=== PATIENT | female | born 1980 | race African-American/Black ===

== ENCOUNTER 2020-07-04 01:49 | Outpatient (CLI) | payer OTHER, SELFPAY ==
[2020-07-04 19:19] LABS: SARS-CoV-2 RNA PCR Negative
== END 2020-07-04 01:50 | disposition home or self-care (01) ==
LOC: ANHCOVIDDT 01:49
PROVIDERS: PCP Physician Assistant; Visit Provider Surgery
DX: Z01.812 Encounter for preprocedural laboratory examination (principal); Z11.59 Encounter for screening for other viral diseases
CPT/HCPCS: 87635; C9803; U0003

== ENCOUNTER 2020-07-06 00:23 | Day surgery (SDC) | payer OTHER, SELFPAY ==
[2020-06-19 15:43] VITALS: BMI 32.5
--- NOTE | 2020-07-05 10:40 | WPDANESEPPF ---
Anes - Initial Pre Proc Eval Procedure: Operation Date: 07/06/20 07:30 Proposed Procedures p Excision Lipoma Left Upper Back, Excision Lipoma Left Anterior Shoulder Region - Justice Schumacher MD Date/Time: 07/05/20 10:40 Surgeon: Justice Schumacher MD Pre Op Diagnosis: Lipomas Left Upper Back/ Left Anterior Shoulder Patient Data Age: 40 Gender: F Height: 1.57 m Weight: 80.74 kg Allergies Allergy/AdvReac Type Severity Reaction Status Date / Time No Known Allergies Allergy Verified 06/19/20 15:44 Home Medications Medication Instructions Recorded Confirmed Type norgestimate-ethinyl estradiol 1 tablet PO HS 06/14/20 06/19/20 History 0.18 mg/0.215mg/0.25mg-35 mcg(28)tablet Patient hx anesthesia problems: none Family hx anesthesia problems: none PMF Family History Family History Mother Diabetes mellitus Cerebrovascular accident Grandparent Diabetes mellitus Social History Social History Smoking status: Never smoker Alcohol intake: never 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 Questions were solicited and answers provided to the satisfaction of the patient/family/POA.
[2020-07-06] MEDS: LACTATED RINGERS 1,000 ML 30 ML IV CONT (07:02)
[2020-07-06 07:04] VITALS: BP 129/66; PULSE 86; RESP 18; TEMP 37.2; O2SAT 100
--- NOTE | 2020-07-06 07:21 | WPDHPUPDATE1 ---
History and Physical Update Update Date/Time: 07/06/20 07:21 History and Physical has been reviewed, including an updated exam of the patient. There are NO changes in the patient's condition. Risks, benefits, and alternatives have been discussed and questions answered. Patient agrees to proceed with procedure.
[2020-07-06] MEDS: ceFAZolin 2 GM/D5W 50 ML 2 GM/50 ML BAG IVPB (07:27)
[2020-07-06] MEDS: BUPIVACAINE/EPINEPHRINE 0.5% 10 ML VIAL 20 ML INFILTRATE (07:56)
--- NOTE | 2020-07-06 08:54 | P.OP_ITS ---
Procedure Note - Detailed Date of procedure: 07/06/20 Pre-op diagnosis: Lipomas Left Upper Back/ Left Anterior Shoulder Procedure performed: Excision of Subcutaneous masses x2 A) 12 x 10 x 3 cm subcutaneous mass left upper back B) 6 x 4.5 x 2.3 cm subcutaneous mass left anterior shoulder region Description of procedure: The patient was placed in the supine position initially and after sedation rolled into the right lateral decubitus position to expose both of the subcutaneous masses. After a surgical time out confirming patient and procedure the patient was prepped and draped in the usual sterile fashion Exposing both the left anterior shoulder and the mid upper left back. Local anesthetic was administered subcutaneously 1st at the left anterior shoulder lesion which measured approximately 6 x 4.5 cm in greatest dimensions. A direct incision was made over the lesion/mass approximately 6 cm in length carefully cutting down to the capsule of the suspected lipoma. Then carefully squeezing this from side to side it started to bubble up out of the wound and Bovie cautery was used to achieve hemostasis along the edges and carefully dissect this out of the subcutaneous tissues. Only has very base was it somewhat adherent to some fascia over some underlying muscle. I excised this bytaking a thin margin circumferentially. I dissected down to the deep subcutaneous tissues and then completely excised the mass. Bleeding was controlled with electrocautery. The wound was closed in two layers. An un-dyed 3-0 vicryl deep dermal and then a 4-0 undyed Monocryl running subcuticular closure was completed. While the operator assistant i cementing was closing the skin on the above site, I then addressed the site on her left upper back. A transverse incision was outlined over this and local anesthetic using 0. 5 % Marcaine with epinephrine was injected both long this incision and then underneath the subq tissues out along the circumference of the palpable mass. A direct incision was made over the lesion/mass approximately 11 cm in length carefully cutting down to the capsule of the suspected lipoma. Then carefully by retracting this from side to side it dissected up out of the wound and Bovie cautery was used to achieve hemostasis along the edges and carefully dissected this out of the subcutaneous tissues. At it's base laterally it was somewhat adherent to some fascia over some underlying muscle. I excised this by taking a thin margin circumferentially. I dissected down to the deep subcutaneous tissues and then completely excised the mass. Bleeding was controlled with electrocautery. There is only 1 moderate- sized artery that bled as I came underneath the lesion. This was controlled by grasping it with a mosquito Hemostatic and then cauterizing the vessel. The wound was closed in two layers. An un-dyed 2-0 vicryl deep subcutaneous and deep dermal and then a few more superficial interrupted 3 0 undyed Vicryl subcutaneous sutures then followed by a 3-0 undyed Monocryl running subcuticular closure was completed. Surgical glue applied as dressing. Patient tolerated this well. Implants: none Anesthesia: local and other (GIVS) Surgeon: Justice Schumacher MD Human Performance Technologist: Katey WELLS. OR merchandising assistant Estimated blood loss (mL): 10 Drains: Yes ( 15 round OLEG Dylan drain to the space under the left upper back incision.) Packing: No Pathology: yes ( two subcutaneous masses) Complications: No immediate complications Condition: stable Disposition: same day Findings: 2 masses which appeared to be lipomas. The one on her back was densely adhered to the underlying fascia.
[2020-07-06 08:57] VITALS: BP 119/74; PULSE 72; RESP 10; TEMP 36.2; O2SAT 99
[2020-07-06 09:25] VITALS: BP 133/83; PULSE 69
[2020-07-06 09:55] VITALS: BP 126/77; PULSE 70
== END 2020-07-06 10:18 | disposition home or self-care (01) ==
PROVIDERS: PCP Physician Assistant; Visit Provider Surgery
PROC: (CPT 21931; principal; 2020-07-06 07:30)
DX: D17.1 Benign lipomatous neoplasm of skin and subcutaneous tissue of trunk (principal); D17.22 Benign lipomatous neoplasm of skin and subcutaneous tissue of left arm; E66.9 Obesity, unspecified; Z68.31 Body mass index [BMI] 31.0-31.9, adult
CPT/HCPCS: 21931; 24071; 88304; J0690; J1100; J2250; J2370; J2405; J2704; J3010; J7120

== ENCOUNTER → 2021-07-19 16:41 | Outpatient (CLI) | payer BC, SELFPAY ==
--- NOTE | ~2021-07-19 | MM_ITS ---
EXAMINATION: MM screening unique BI w peña HISTORY: Screening mammogram; baseline examination TECHNIQUE: Craniocaudal and mediolateral oblique 3-D tomosynthesis images were obtained and synthetic 2-D images were generated. CAD analysis was submitted and interpreted. COMPARISON: No prior mammogram is available for comparison at this institution. BREAST PARENCHYMAL COMPOSITION: There are scattered areas of fibroglandular density. FINDINGS: There is no evidence of suspicious mass, calcification, or architectural distortion to sugg est malignancy in either breast. There has been no suspicious interval change. IMPRESSION: 1. No mammographic evidence of malignancy. 2. Recommend routine screening mammography in one year. BI-RADS Category 1: Negative Reviewed, dictated and finalized at location A.
== END ==
PROVIDERS: PCP Physician Assistant; Visit Provider Physician Assistant
DX: Z12.31 Encounter for screening mammogram for malignant neoplasm of breast (principal)
CPT/HCPCS: 77063; 77067

== ENCOUNTER → 2022-08-30 10:34 | Outpatient (CLI) | payer OTHER, SELFPAY ==
--- NOTE | ~2022-08-30 | XR_ITS ---
XR knee RT 3V 08/30/2022 10:50 Indication: Right knee pain Procedure: 3 views right knee Comparison: No prior studies for comparison. Findings: There is anatomic alignment. Mild patellofemoral compartment degenerative change. No fractu re or traumatic malalignment. No significant joint effusion. No foreign bodies. Impression: 1: Mild patellofemoral compartment osteoarthritis. Reviewed, dictated and finalized at location A. 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
--- NOTE | ~2022-08-30 | XR_ITS ---
XR knee LT 3V 08/30/2022 10:50 Indication: Left knee pain Procedure: 3 views left knee Comparison: No prior studies for comparison. Findings: There is a corticated ossific density at the medial aspect of the distal femur, likely rela omar to remote MCL injury. There is mild patellofemoral compartment osteoarthritis. No significant sean nt effusion. No acute fracture or traumatic malalignment. Impression: 1: Mild patellofemoral compartment osteoarthritis. Reviewed, dictated and finalized at location A. 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
== END ==
PROVIDERS: PCP Physician Assistant; Visit Provider Physician Assistant
DX: M17.0 Bilateral primary osteoarthritis of knee (principal)
CPT/HCPCS: 73562

== ENCOUNTER → 2022-11-08 08:09 | Outpatient (CLI) | payer OTHER, SELFPAY ==
--- NOTE | ~2022-11-08 | MM_ITS ---
EXAMINATION: MM screening unique BI w peña HISTORY: Screening mammogram TECHNIQUE: Craniocaudal and mediolateral oblique 3-D tomosynthesis images were obtained and synthetic 2-D images were generated. CAD analysis was submitted and interpreted. COMPARISON: 07/19/2021 bilateral screening mammogram BREAST PARENCHYMAL COMPOSITION: There are scattered areas of fibroglandular density. FINDINGS: There is no evidence of suspicious mass, calcification, or architectural distortion to sugg est malignancy in either breast. There has been no suspicious interval change. IMPRESSION: 1. No mammographic evidence of malignancy. 2. Recommend routine screening mammography in one year. BI-RADS Category 1: Negative Reviewed, dictated and finalized at location A. 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
== END ==
PROVIDERS: PCP Physician Assistant; Visit Provider Physician Assistant
DX: Z12.31 Encounter for screening mammogram for malignant neoplasm of breast (principal)
CPT/HCPCS: 77063; 77067

== ENCOUNTER 2024-01-16 08:26 | Outpatient (CLI) | payer BC, SELFPAY ==
--- NOTE | ~2024-01-16 | MM_ITS ---
EXAMINATION: MM screening unique BI w peña HISTORY: Screening mammogram TECHNIQUE: Craniocaudal and mediolateral oblique 3-D tomosynthesis images were obtained and synthetic 2-D images were generated. CAD analysis was submitted and interpreted. COMPARISON: November 08, 2022, July 19, 2021 bilateral screening mammogram examinations BREAST PARENCHYMAL COMPOSITION: There are scattered areas of fibroglandular density. FINDINGS: There is no evidence of suspicious mass, calcification, or architectural distortion to sugg est malignancy in either breast. There has been no suspicious interval change. IMPRESSION: 1. No mammographic evidence of malignancy. 2. Recommend routine screening mammography in one year. BI-RADS Category 1: Negative Reviewed, dictated and finalized at location A.
== END 2024-01-16 08:27 | disposition home or self-care (01) ==
LOC: ANHIMG 08:29
PROVIDERS: PCP Physician Assistant; Visit Provider Physician Assistant
DX: Z12.31 Encounter for screening mammogram for malignant neoplasm of breast (principal)
CPT/HCPCS: 77063; 77067

== ENCOUNTER 2024-07-01 16:38 | Emergency (ER) | payer BC, SELFPAY ==
--- NOTE | ~2024-07-01 | CT_ITS ---
EXAMINATION: CT chest abdomen pelvis wo con DATE: 07/01/2024 18:06 INDICATION: Right abdominal pain. TECHNIQUE: Computed tomography (CT) of the chest, abdomen, and pelvis was performed without intraveno us contrast. Automated exposure control and iterative reconstruction technique were employed. The dos e-length product was 739.09 mGy-cm. COMPARISON: None FINDINGS: CHEST CT: The lungs demonstrate mild atelectasis. No pleural effusion. The heart size is normal. No pericardial effusion. ABDOMEN/PELVIS CT: The liver and spleen are normal. The gallbladder is contracted. The pancreas, adrenal glands, and kid neys are normal. There is no urolithiasis. There are no dilated loops of bowel. The appendix is lamar l. There are no pathologically enlarged lymph nodes. There is no free intraperitoneal fluid. The uter us is enlarged. There is mild lumbar spondylosis. IMPRESSION: 1. Enlarged uterus, likely secondary to fibroids. Reviewed, dictated and finalized at location A.
--- NOTE | 2024-07-01 16:59 | ED.ABDPAIN ---
HPI - Abdominal Pain General Chief Complaint: Abdominal Pain <Jumana Muniz APRN - Last Filed: 07/01/24 17:04> Stated Complaint: abd pain <Jumana Muniz APRN - Last Filed: 07/01/24 17:04> Time Seen by Provider: 07/01/24 16:50 <Jumana Muniz APRN - Last Filed: 07/01/24 17:04> Focused HPI: Patient is a 44-year-old female who presents to the ER with abdominal pain. She reports she ate at [employer] last and has had cramping and headache since then. Patient endorses abdominal pain in her right upper quadrant and right lower quadrant. She denies nausea, vomiting, and diarrhea. Patient is worried she has a GI infection since she has been watching the news. She denies chest pain, shortness of breath, or any other medical history. GENERAL: Well-appearing, well-nourished, and in no acute distress. HEAD: Normocephalic, atraumatic. CHEST: Clear to auscultation. ?No respiratory distress. HEART: Regular rate and rhythm.? NEURO: ?Alert and oriented x3. ABDOMEN: BS x 4 quadrants, increased pain with palpation in RUQ and RLQ. Patient screened in triage and initial orders placed.? ?Additional care and disposition to be based upon?diagnostic testing and treatment. <Jumana Muniz APRN - Last Filed: 07/01/24 17:04> Related Data Home Medications: Home Medications Medication Instructions Recorded Confirmed norgestimate-ethinyl estradiol 1 tablet PO HS 06/14/20 11/25/21 0.18 mg/0.215mg/0.25mg-35 mcg(28)tablet ([facility]) <Jumana Muniz APRN - Last Filed: 07/01/24 17:04> Allergies/Adverse Reactions: Allergies Allergy/AdvReac Type Severity Reaction Status Date / Time No Known Allergies Allergy Verified 07/01/24 16:40 <Jumana Muniz APRN - Last Filed: 07/01/24 17:04> Review of Systems Review of Systems: All systems as dictated in HPI <Juan Rebolledo PA-C - Last Filed: 07/02/24 01:16> PMFSH Surgical History Surgical History: Surgical History Mass of skin of left shoulder removed on 07/06 Mass on back removed on 07/06 <Jumana Muniz, HERB DOCTOR - Last Filed: 07/01/24 17:04> Family History Family History: Family History Mother Cerebrovascular accident Diabetes mellitus Hypertension Grandparent Diabetes mellitus Son Asthma <Jumana Muniz APRN - Last Filed: 07/01/24 17:04> Social History Social History: Social History Alcohol intake: never Substance use: unknown Living arrangements: with family Occupation/Education: occupation 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 HEAD: Normocephalic, atraumatic. EYES: PERRLA and EOMI. ENT: Nares clear, no rhinorrhea or epistaxis. Mucous membranes moist. Oropharynx without tonsillar hypertrophy exudate or other lesions. NECK: Supple. No adenopathy or masses. CHEST: No respiratory distress. Clear to auscultation. No wheezes rales or rhonchi HEART: Regular rate and rhythm. No murmur heard. Normal peripheral pulses. ABDOMEN: Soft, nontender, nondistended, normal active bowel sounds. MSK: Normal range of motion. No edema. SKIN: Warm, dry, no rash. NEURO: Alert and oriented x4. No focal deficits. PSYCH: Normal mood and affect. <Juan Rebolledo PA-C - Last Filed: 07/02/24 01:16> MDM - Abdominal Pain MDM Narrative Medical decision making narrative: This is a 44-year-old female who presents to the ED for chief complaint of abdominal pain, loose stools. She has concern for possible exposure to possible Shigella from l
[2024-07-01 17:56] LABS: BEDSIDEPREGUCG Negative (Negative)
[2024-07-01 18:04] LABS: Basophils Percent Auto 0.3 % (0.2-1.2); Eosinophils Absolute Auto 0.1 K/mm3 (0-0.3); Eosinophils Percent Auto 0.6 % (0-4.4); Hemoglobin 12.7 g/dL (12.0-15.0); Immature Granulocyte Absolute 0.01 K/mm3 (0.00-0.031); Immature Granulocyte Percent A 0.1 % (0-0.5); Lymphocytes Absolute Auto 3.29 K/mm3 (0.9-3.2); Lymphocytes Percent Auto 41.3 % (18.3-44.2); Mean Corpuscular HGB Conc 32.6 g/dl (32-36); Mean Corpuscular Hemoglobin 29.5 pg (26-34); Mean Corpuscular Volume 90.7 fl (80-100); Mean Platelet Volume 10.1 fl (7.4-10.4); Monocytes Absolute Auto 0.6 K/mm3 (0.1-0.6); Neutrophils Percent Auto 50.7 % (45.5-73.1); Platelet Count Result 244 k/mm3 (150-375); Red Cell Distribution Width 13.9 % (11.5-14.5)
[2024-07-01 18:10] LABS: Add Urine Microscopic? YES; Appearance Urine Clear (Clear); Bacteria Urine None Seen /hpf; Bilirubin Urine Negative (Negative); Blood Urine 1+ (Negative); Color Urine Yellow (Yellow); Glucose Urine UA Negative (Negative); Ketones Urine Trace mg/dL (Negative); Leukocyte Esterase Ur Negative LEU/UL (Negative); Nitrate Urine Negative (Negative); Non Pathogenic Casts 0-2; Protein Urine Negative (Negative); Specific Grav Ur 1.026 (1.001-1.035); Squamous Epithelial Cell Urine None Seen /hpf (Few); Urobilinogen Urine 0.2 mg/dL (<2.0); WBC Urine 0-5 /hpf (0-3); pH Urine 6.5 (5.0-9.0)
[2024-07-01 18:13] LABS: Lactic Acid Reflex 0.6 mmol/L (0.7-2.0); Pregnancy On Board Control Positive; Urine Pregnancy Test Negative
[2024-07-01 18:14] LABS: Alanine Aminotransferase 11 U/L (6-35); Albumin Level 4.3 g/dL (3.5-5.1); Alkaline Phosphatase 42 U/L (38-126); Anion Gap 8 mmol/L (4-12); Aspartate Amino Transferase 23 U/L (14-36); Bilirubin,Total 0.2 mg/dL (0.2-1.3); Blood Urea Nitrogen 14 mg/dL (7-17); Calcium 8.9 mg/dL (8.4-10.2); Carbon Dioxide 26 mmol/L (22-30); Chloride 105 mmol/L (98-107); Estimated CRCL calculation 69 ml/min; Estimated Glomerular Filt Rate > 60; Glucose 90 mg/dL (65-110); Lipase 47 U/L (23-300); Sodium 139 mmol/L (137-145)
[2024-07-01 18:16] LABS: Prothrombin Time 13.6 Seconds (11.1-14.7)
[2024-07-01 18:17] LABS: Partial Thromboplastin Time 30.9 Seconds (22.3-36.8)
[2024-07-01 18:25] LABS: Troponin I < 0.012 ng/mL (0.000-0.034)
[2024-07-01] MEDS: KETOROLAC 15 MG/ML VIAL (*BKC) IV PUSH (18:38)
[2024-07-01] MEDS: ONDANSETRON INJ 4 MG/2 ML VIAL IV PUSH (18:38)
== END 2024-07-01 19:26 | disposition home or self-care (01) ==
PROVIDERS: Registered Nurse; Emergency Provider Physician Assistant; PCP Physician Assistant
DX: R10.11 Right upper quadrant pain (principal); R10.31 Right lower quadrant pain; N85.2 Hypertrophy of uterus
CPT/HCPCS: 36415; 71250; 74176; 80053; 81001; 81025; 83605; 83690; 84484; 85025; 85610; 85730; 96374; 96375; 99284; J1885; J2405

== ENCOUNTER 2025-01-21 09:51 | Outpatient (CLI) | payer BC, SELFPAY ==
--- NOTE | ~2025-01-21 | MM_ITS ---
EXAMINATION: MM screening [facility] BI w peña HISTORY: Screening mammogram TECHNIQUE: Craniocaudal and mediolateral oblique 3-D tomosynthesis images were obtained and synthetic 2-D images were generated. CAD analysis was submitted and interpreted. COMPARISON: 01/16/2024, 11/08/2022, 07/19/2021 BREAST PARENCHYMAL COMPOSITION:Not Dense. There are scattered areas of fibroglandular density. FINDINGS: No suspicious mass, calcification, or architectural distortion are identified in either saul ast to suggest malignancy. There has been no suspicious interval change. IMPRESSION: No mammographic evidence of malignancy. Recommend routine screening mammography in one year. BI-RADS Category 1: Negative Reviewed, dictated and finalized at location .
== END 2025-01-21 09:52 | disposition home or self-care (01) ==
LOC: MICIMG 09:51
PROVIDERS: PCP Physician Assistant; Visit Provider Physician Assistant
DX: Z12.31 Encounter for screening mammogram for malignant neoplasm of breast (principal)
CPT/HCPCS: 77063; 77067